=== PATIENT | male | born 1980 | race African-American/Black ===

== ENCOUNTER 2020-08-13 19:27 | Emergency (ER) | payer OTHER ==
[~2020-08-13] VITALS: Ht 172.7 cm; Wt 72.6 kg
[2020-08-13 21:35] VITALS: BP 142/75; TEMP 99
== END 2020-08-13 23:05 | disposition home or self-care (01) ==
LOC: ED 19:27
DX: U07.1 COVID-19 (principal); J20.8 Acute bronchitis due to other specified organisms; J02.9 Acute pharyngitis, unspecified; F17.210 Nicotine dependence, cigarettes, uncomplicated
CPT/HCPCS: 87502; 87635; 87651; 99283; U0003

== ENCOUNTER 2020-09-03 18:25 | Emergency (ER) | payer OTHER ==
[~2020-09-03] VITALS: Ht 172.7 cm; Wt 72.6 kg
[2020-09-03 20:15] VITALS: BP 128/82; TEMP 98.3
== END 2020-09-03 20:15 | disposition home or self-care (01) ==
LOC: ED 18:29
DX: J30.89 Other allergic rhinitis (principal); J32.8 Other chronic sinusitis; H92.01 Otalgia, right ear
CPT/HCPCS: 99283